=== PATIENT | female | born 1965 | race Caucasian/White ===

== ENCOUNTER 2017-01-11 06:49 | Day surgery (SDC) | payer OTHER ==
[2017-01-11] MEDS ORDERED: Naropin 0.5% 30 ML VIAL IJ ONE (06:50)
[2017-01-11] MEDS ORDERED: BREVIBLOC 100 MG/10 ML IV ONE (06:50)
[2017-01-11] MEDS ORDERED: Versed 2 MG/2 ML Injection IV ONE ×2 (06:50)
[2017-01-11] MEDS ORDERED: Decadron 4 MG INJ IV ONE ×2 (06:50)
[2017-01-11] MEDS ORDERED: APRESOLINE 20 MG/ML INJ IV ONE (06:50)
[2017-01-11] MEDS ORDERED: DILAUDID 2 MG INJECTION IV ONE (06:50)
[2017-01-11] MEDS ORDERED: DIPRIVAN 200 MG/20 ML IV ONE (06:50)
[2017-01-11] MEDS ORDERED: Zemuron 100 MG/10 ML IV ONE ×2 (06:50)
[2017-01-11] MEDS ORDERED: Zofran 4 MG/2 ML VIAL IV ONE ×2 (06:50)
[2017-01-11] MEDS ORDERED: SUBLIMAZE 100 MCG/2 ML IV ONE ×2 (06:50)
[2017-01-11] MEDS ORDERED: BRIDION 200MG/2ML IV ONE (06:50)
[2017-01-11] MEDS ORDERED: Quelicin Fliptop 200 MG/10 ML IV ONE ×2 (06:50)
[2017-01-11] MEDS ORDERED: XYLOCAINE 2%/Epi 1:200000 20ML VIAL MPF IJ ONE (06:50)
[2017-01-11] MEDS ORDERED: TORAdol 30 mg Injection IV ONE ×2 (06:50)
[2017-01-11] MEDS ORDERED: Lactated Ringers 1,000 ML IV ONE ×2 (07:47→10:30)
[2017-01-11] MEDS ORDERED: Xopenex 1.25 MG/0.5 ML UD NEBULE IH ONE ×2 (07:49→08:05)
[2017-01-11] MEDS ORDERED: CEFAZOLIN 2 GM-D5W BAG** 2 GM/50 ML ML IV SCH (08:00)
[2017-01-11] MEDS ORDERED: Lactated Ringers 1,000 ML IV SCH (08:00)
[2017-01-11] MEDS ORDERED: ON-Q PUMP 1 in Marcaine Mpf 0.5% Vial 30 Ml*** 270 ML IV SCH (09:45)
[2017-01-11] MEDS ORDERED: MARCAINE MPF IV SCH (10:00)
[2017-01-11] MEDS ORDERED: ON Q PUMP IV SCH (10:00)
--- NOTE | 2017-01-11 10:57 | OP ---
SURGERY DATE/TIME: 01/11/2017 0938 PREOPERATIVE DIAGNOSIS: Right shoulder subacromial impingement with possible rotator cuff tear. POSTOPERATIVE DIAGNOSES: 1) Right shoulder subacromial impingement with rotator cuff tear. 2) Chondromalacia glenohumeral joint. 3) Paralabral degeneration right shoulder. PROCEDURES: 1) Right shoulder arthroscopy with chondroplasty. 2) Right shoulder arthroscopy with glenolabral debridement. 3) Open acromioplasty distal clavicle resection, CA ligament release and bursectomy. 4) Modified rotator cuff repair. 5) Long arm splint. 6) On-Q catheter postoperative pain. SURGEON: Francisco J Almeida D.O. FIRST AID INSTRUCTOR: None. ANESTHESIA: General per PERFORATOR. ESTIMATED BLOOD LOSS: Minimal. DESCRIPTION OF PROCEDURE: The patient is taken to the operative suite and placed in supine position, given general anesthetic. Head of bed elevated 60 degrees in beach chair. Sterile prep and drape is done to the right arm and shoulder. Entry point made in the posterior aspect of the shoulder through glenohumeral joint with a spinal needle stab incision and camera. Inflow established there and retrograde placement of the spinal needle stab incision and just lateral to the coracoid a shaver and then diagnostic arthroscopy begun. The right shoulder was found to have multiple areas of small, round depressions in the glenohumeral chondral surfaces. None done to bone but a few with modified outer bridge changes putting it right on scale of 1 to 2 covering 5 to 10 mm in selected areas. This was buffed up and cleaned with both the ArthroCare device, modified ArthroCare device from the [employer] system and SURFAS and the shaver. Glenolabral material then was pulling away from the anterior edge of the joint line was appreciated and it was touched up with the ArthroCare SURFAS device and cleaned with a shaver, pictures and probe and this was done from about the 1:00 to 4:00 areas primarily. It appeared to have the labrum fully intact otherwise including the biceps tendon, rotator cuff found to have a small rent. I removed the instruments and drained the shoulder of saline. A small incision made over the AC joint through skin, subcutaneous fascia, deep fascia into the subacromial space resecting the leading edge of the acromion and distal clavicle, taking out bursa and assessing CA ligament and cleaning the subacromial space. Rotator cuff was addressed and there was a small rent. My passage of one deep rotator cuff repair into the bone and considered removal as the repair was not necessarily tenuous but was not as strong as I would like and felt that it was stable however. The wound is irrigated saline and closed with interrupted Ethibond in the subacromial space, 0 Vicryl in the subcutaneous layer, roberta in the skin, Xeroform, 4x4, sterile dressings. Long arm splint applied. An On-Q catheter through separate entry point was placed into the subacromial space and secured with Steri-Strips run at a 1 to 2 cc/hour rate and converted now to a 400 cc reservoir with a pump creating 4 cc/hour delivery. The patient is sent onto the recovery room in satisfactory condition. I spoke to the son about the merits of the case.
[2017-01-11 13:11] VITALS: O2SAT 98
[2017-01-11 14:07] VITALS: BP 108/75; PULSE 61
== END 2017-01-11 13:50 | disposition home or self-care (01) ==
LOC: SDC 06:49
PROVIDERS: ATTEND Orthopaedic Surgery
PROC: 0LQ10ZZ Repair Right Shoulder Tendon, Open Approach (ICD-10-PCS; principal; 2017-01-11)
PROC: 0RBJ4ZZ Excision of Right Shoulder Joint, Percutaneous Endoscopic Approach (ICD-10-PCS; 2017-01-11)
DX: M75.41 Impingement syndrome of right shoulder (principal); M75.101 Unspecified rotator cuff tear or rupture of right shoulder, not specified as traumatic; M94.211 Chondromalacia, right shoulder
CPT/HCPCS: 01630; 64415; 76942; 93005; 94640; J0330; J0360; J0690; J1100; J1170; J1885; J2250; J2405; J2704; J2795; J3010; A9270-GY

== ENCOUNTER 2017-02-12 00:45 | Emergency (ER) | payer OTHER ==
[2017-02-12] MEDS ORDERED: MORPHINE SULFATE 10 MG/ML IV ONE (01:16)
[2017-02-12] MEDS ORDERED: BENADRYL 50 MG/ML IV ONE (01:16)
[2017-02-12] MEDS ORDERED: Sodium Chloride 0.9% 1000 ML 1,000 ML IV SCH (01:30)
[2017-02-12] MEDS ORDERED: BENADRYL 50 MG/ML ONE (01:30)
[2017-02-12] MEDS ORDERED: MORPHINE SULFATE 10 MG/ML ONE (01:31)
[2017-02-12] MEDS ORDERED: Sodium Chloride 0.9% 1000 ML 1,000 ML ONE (01:31)
[2017-02-12 01:34] LABS: BASOPHIL % 0.5 % (0.0-0.4); Eosinophil % 4.3 % (0.00-5.0); Granulocytes % 68.8 % (36.0-66.0); Lymphocytes % 15.8 % (24.0-44.0); Mean Cell Volume 94.4 fl (78-100); Mean Corpuscular Hemoglobin 31.5 pg (26-32); Mean Platelet Volume 9.5 fl (6-9.5); Monocytes % 10.6 % (0.0-12.0); Platelet Count 248 K/mm3 (150-450); Red Blood Count 4.26 M/mm3 (4.1-5.4); Red Cell Distribution Width 13.6 % (11.5-14.0); White Blood Count 9.8 K/mm3 (4.0-10.5)
[2017-02-12 01:52] LABS: ANION GAP 11.7 MEQ/L (5-15); BLOOD UREA NITROGEN 21 mg/dL (9-20); CHLORIDE 99 mEq/L (98-107); Carbon Dioxide 26.9 mEq/L (21-32); Glucose 138 MG/DL (70-110); Potassium 3.9 mEq/L (3.5-5.1); SODIUM 134 mEq/L (136-145)
[2017-02-12 02:07] VITALS: BP 124/62; PULSE 82; O2SAT 98
--- NOTE | 2017-02-12 02:41 | ERPHSYRPT ---
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 She has had extra pain. Out of norco. She fell on the right shoulder last weekend and may have injured it. She has had some green drainage from the incision. Dr Abdul placed her on cipro last week. No redness. No fevers. Pain is worse with movement. She is using a sling. Has been unable to do physical therapy as yet. Pain in right shoulder is severe so she came to ER. Extremities Pain Location: shoulder: right Allergies/Adverse Reactions: itraconazole [Itraconazole] Allergy (Mild, Verified 01/11/17 07:46) tramadol Allergy (Mild, Verified 01/11/17 07:46) acetaminophen [From Darvocet-N] Allergy (Verified 01/11/17 07:46) propoxyphene napsylate [From Darvocet-N] Allergy (Verified 01/11/17 07:46) Home Medications: Citalopram Hydrobromide 20 mg* [ceLEXa 20 MG] 20 mg PO DAILY 01/10/17 [ History] Omeprazole 20 MG [Prilosec 20 mg] 20 mg PO DAILY 01/10/17 [History] Hx Tetanus, Diphtheria Vaccination/Date Given: Yes (UNKNOWN) Hx Influenza Vaccination/Date Given: No Hx Pneumococcal Vaccination/Date Given: No - Review of Systems Constitutional: No Fever, No Chills Cardiac: No Chest Pain Musculoskeletal: Joint Pain (right shoulder), No Back Pain, No Neck Pain Neurological: No Focal Weakness, No Parasthesia All Other Systems: Reviewed and Negative - Past Medical History Pertinent Past Medical History: Yes Neurological History: Stroke ENT History: No Pertinent History Cardiac History: Hypertension Respiratory History: No Pertinent History Endocrine Medical History: No Pertinent History Musculoskeletal History: Arthritis, Degenerative Disk Disease GI Medical History: Esophageal Disorder, GERD, Hepatitis, Irritable Bowel History: No Pertinent History Psycho-Social History: Anxiety, Depression Female Reproductive Disorders: No Pertinent History Other Medical History: ESOPHAGEAL ULCER, overactive bladder - Past Surgical History Past Surgical History: Yes Neuro Surgical History: No Pertinent History Cardiac: No Pertinent History Respiratory: No Pertinent History Gastrointestinal: Cholecystectomy Genitourinary: No Pertinent History Musculoskeletal: No Pertinent History, Orthopedic Surgery Female Surgical History: Tubal Ligation, Other Other Surgical History: LT SHOULDER. bilateral KNEE. TONSILS. 2 fingers reattatched right knee surgery times 2 - Social History Smoking Status: Current every day smoker How long have you smoked: 20 Exposure to second hand smoke: Yes Drug Use: none Patient Lives Alone: No - Female History Hx Last Menstrual Period: na Hx Now: No - Nursing Vital Signs Nursing Vital Signs: Initial Vital Signs Temperature 99.8 F 02/12/17 01:00 Pulse Rate 96 H 02/12/17 01:00 Respiratory Rate 16 02/12/17 01:00 Blood Pressure 111/83 02/12/17 01:00 O2 Sat by Pulse Oximetry 97 02/12/17 01:00 Pain Scale Pain Intensity 8 - Physical Exam General Appearance: alert Eyes, Ears, Nose, Throat Exam: normal ENT inspection, moist mucous membranes Neck Exam: supple Cardiovascular/Respiratory Exam: normal breath sounds, regular rate/rhythm Shoulder Exam: limited ROM (mild green drng on dressing, no fluctuance or drng expressed, no warmth or redness, severe tenderness to the shoulder area) Elbow/Forearm Exam: normal inspection, non-tender Wrist Exam: normal inspection, non-tender Hand Exam: normal inspection, non-tender Neuro/Tendon Exam: normal sensation, normal motor functions Mental Status Exam: alert, oriented x 3, cooperative Skin Exam: warm, dry SpO2 Interpretation: normal SpO2: 98 Oxygen Delivery: Room Air - Course Nursing assessment & vital signs reviewed: Yes Ordered Tests: Active Orders 24 hr Category Date Time Status IV Insertion STAT Care 02/12/17 01:16 Active SHOULDER Stat Exams 02/12/17 01:18 Taken BMP Stat Lab 02/12/17 01:30 Completed CBC W DIFF Stat Lab 02/12/17 01:30 Completed CULTURE,WOUND Stat Lab 02/12/17 01:30 Received Erythrocyte Sedimentation Rate Stat Lab 02/12/17 01:30 Completed Medication Summary Generic Name Dose Route Start Last Admin Trade Name Brittany PRN Reason Stop Dose Admin Sodium Chloride 1,000 mls @ 100 mls/hr 02/12/17 01:30 02/12/17 01:33 Sodium Chloride 0.9% 1000 Ml IV 03/14/17 01:29 100 mls/hr .Q10H SOFI Administration Discontinued Medications Generic Name Dose Route Start Last Admin Trade Name Brittany PRN Reason Stop Dose Admin Diphenhydramine HCl 44 mg 02/12/17 01:16 02/12/17 01:32 Benadryl 50 Mg/Ml IV 02/12/17 01:17 44 mg STAT ONE Administration Diphenhydramine HCl Confirm 02/12/17 01:30 Benadryl 50 Mg/Ml Administered 02/12/17 01:31 Dose 50 mg .ROUTE .STK-MED ONE Morphine Sulfate 8 mg 02/12/17 01:16 02/12/17 01:32 Morphine Sulfate 10 Mg/Ml IV 02/12/17 01:17 8 mg STAT ONE Administration Morphine Sulfate Confirm 02/12/17 01:31 Morphine Sulfate 10 Mg/Ml Administered 02/12/17 01:32 Dose 10 mg .ROUTE .STK-MED ONE Lab/Rad Data: Laboratory Result Diagrams 02/12/17 01:30 02/12/17 01:30 Laboratory Results 02/12/17 02/12/17 02/12/17 Range/Units 01:30 01:30 01:30 WBC 9.8 (4.0-10.5) K/mm3 RBC 4.26 (4.1-5.4) M/mm3 Hgb 13.4 (12.0-16.0) gm/dl Hct 40.2 (35-47) % MCV 94.4 (78-100) fl MCH 31.5 (26-32) pg MCHC 33.3 (32-36) g/dl RDW 13.6 (11.5-14.0) % Plt Count 248 (150-450) K/mm3 MPV 9.5 (6-9.5) fl Gran % 68.8 H (36.0-66.0) % Lymphocytes % 15.8 L (24.0-44.0) % Monocytes % 10.6 (0.0-12.0) % Eosinophils % 4.3 (0.00-5.0) % Basophils % 0.5 (0.0-0.4) % Basophils # 0.05 (0-0.4) ESR 25 H (0-20) mm/hr Sodium 134 L (136-145) mEq/L Potassium 3.9 (3.5-5.1) mEq/L Chloride 99 (98-107) mEq/L Carbon Dioxide 26.9 (21-32) mEq/L Anion Gap 11.7 (5-15) MEQ/L BUN 21 H (9-20) mg/dL Creatinine 0.82 (0.55-1.30) mg/dl Estimated GFR > 60 ML/MIN Glucose 138 H (70-110) MG/DL Calcium 8.7 (8.5-10.1) mg/dL - Progress Progress Note: 02/12/17 02:42 Pt was medicated for pain. Labs reassuring. Called Dr Abdul who advised add keflex, ice, continue sling, norco, follow up tuesday. Counseled pt/family regarding: lab results, diagnosis, need for follow-up, rad results - Departure Time of Disposition: 02:43 Departure Disposition: Home Clinical Impression: Acute postoperative pain of right shoulder Condition: Stable Critical Care Time: No Referrals: JUDITH ABDUL [ACTIVE STAFF] - Instructions: Adhesive Capsulitis -- Arthroscopic Surgery, Shoulder Pain Additional Instructions: Add Keflex Rx. Ice packs off and on. Use sling. Call Dr Abdul Tuesday to be seen. Rx norco- no driving tonite or while taking. Prescriptions: Hydrocodone Bit/Acetaminophen [[place] 5-325 Tablet] 1 each PO Q6H PRN PRN #10 tablet PRN Reason: Pain Cephalexin Mh 500 mg [Keflex 500 mg] 1 cap PO QID #40 capsule
[2017-02-12] MEDS ORDERED: KEFLEX 500 MG PO ONE (02:45)
[2017-02-12] MEDS ORDERED: Adacel Vial IM ONE ×2 (02:45→02:54)
[2017-02-12] MEDS ORDERED: KEFLEX 500 MG ONE (02:50)
[2017-02-12] MEDS ORDERED: NORCO 5/325 MG PO ONE (02:52)
[2017-02-12] MEDS ORDERED: NORCO 5/325 MG ONE (02:55)
--- NOTE | 2017-02-12 07:11 | XRAY ---
Indication: Postop pain following rotator cuff surgery. Drainage. Comparison: None 3 views of the right shoulder demonstrates mild acromial spurring and partial resection of the distal clavicle. No other bony, articular, or soft tissue abnormalities.
== END 2017-02-12 03:25 | disposition home or self-care (01) ==
LOC: ED 00:45
DX: G89.18 Other acute postprocedural pain (principal); M25.511 Pain in right shoulder; I10 Essential (primary) hypertension; Z79.899 Other long term (current) drug therapy
CPT/HCPCS: 36000; 36415; 73030; 80048; 85025; 85652; 87070; 87077; 87186; 90471; 90715; 96360; 99284; J1200; J2270; A9270-GY

== ENCOUNTER 2018-03-15 12:52 | Day surgery (SDC) | payer OTHER ==
[2012-04-23 17:45] VITALS: BP 120/86
[2018-03-15] MEDS ORDERED: Depo-Medrol 40 MG/ML IM ONE (12:53)
[2018-03-15] MEDS ORDERED: DIPRIVAN 200 MG/20 ML IV ONE (12:53)
[2018-03-15] MEDS ORDERED: Marcaine 0.5% SDV 10 ML IJ ONE (12:53)
[2018-03-15] MEDS ORDERED: Lactated Ringers 1,000 ML IV ONE (14:54)
--- NOTE | 2018-03-15 16:11 | XRAY ---
14 seconds fluoroscopy time in surgery for bilateral SI joint injection.
--- NOTE | 2018-03-16 04:54 | XRAY ---
Exam: C-arm images for bilateral sacroiliac joint injection. Findings: 14 seconds of intraoperative fluoroscopy time was utilized. 3 intraoperative C-arm images were obtained, 2 in the lateral projection and one in the PA projection. A posterior needle is seen directed toward the inferior margin of the right sacroiliac joint. I do not see a PA image of the left sacroiliac joint. Correlate clinically. Correlate with therapeutic procedure.
== END 2018-03-15 15:00 | disposition home or self-care (01) ==
LOC: SDC-PAIN 12:52
PROVIDERS: ATTEND Psychiatry & Neurology Pain Medicine
DX: M53.3 Sacrococcygeal disorders, not elsewhere classified (principal)
CPT/HCPCS: 27096; 72020; 77002; J1030; J2704; G0260

== ENCOUNTER 2018-10-04 14:05 | Day surgery (SDC) | payer OTHER ==
[2012-04-23 17:45] VITALS: BP 120/86
[2018-10-04] MEDS ORDERED: Marcaine 0.5% SDV 10 ML IJ ONE (14:06)
[2018-10-04] MEDS ORDERED: Depo-Medrol 40 MG/ML IM ONE (14:06)
[2018-10-04] MEDS ORDERED: Lactated Ringers 1,000 ML IV ONE (14:33)
[2018-10-04] MEDS ORDERED: DIPRIVAN 200 MG/20 ML IV ONE (15:03)
[2018-10-04] MEDS ORDERED: Ketamine HCl 50 MG/ML ONE (15:03)
--- NOTE | 2018-10-04 16:42 | XRAY ---
Indication: Bilateral SI joint injection. Intraoperative fluoroscopy was provided for 11 seconds. 4 digital spot images submitted for interpretation demonstrates posterior needle tips projecting over the inferior left and right SI joints. Correlate with intraoperative findings/report.
--- NOTE | 2018-10-04 16:47 | XRAY ---
11 seconds of fluoroscopy was used in surgery for a bilateral SI joint injection.
== END 2018-10-04 15:35 | disposition home or self-care (01) ==
LOC: SDC-PAIN 14:05
PROVIDERS: ATTEND Psychiatry & Neurology Pain Medicine
DX: M46.1 Sacroiliitis, not elsewhere classified (principal); M53.3 Sacrococcygeal disorders, not elsewhere classified; M19.90 Unspecified osteoarthritis, unspecified site; B19.20 Unspecified viral hepatitis C without hepatic coma; F41.8 Other specified anxiety disorders
CPT/HCPCS: 72202; 77002; 84703; G0260; 27096; J1030; J2704

== ENCOUNTER 2019-03-14 15:44 | Day surgery (SDC) | payer OTHER ==
[2012-04-23 17:45] VITALS: BP 120/86
[2019-03-14] MEDS ORDERED: Depo-Medrol 40 MG/ML IM ONE (15:45)
[2019-03-14] MEDS ORDERED: Xylocaine 1% Vial 30 ML PF IJ ONE (15:45)
--- NOTE | 2019-03-14 22:43 | XRAY ---
Indication: Left SI joint injection. Intraoperative fluoroscopy was provided for 5 seconds. 2 digital spot images submitted for interpretation demonstrates posterior needle tip projecting over the inferior left SI joint. Correlate with intraoperative findings/report.
--- NOTE | 2019-03-14 22:52 | XRAY ---
5 seconds of fluoroscopy was used in surgery for a left SI joint injection.
== END 2019-03-14 17:06 | disposition home or self-care (01) ==
LOC: SDC-PAIN 15:44
PROVIDERS: ATTEND Psychiatry & Neurology Pain Medicine
DX: M46.1 Sacroiliitis, not elsewhere classified (principal); M47.817 Spondylosis without myelopathy or radiculopathy, lumbosacral region; F41.8 Other specified anxiety disorders; Z79.899 Other long term (current) drug therapy
CPT/HCPCS: 27096; 72020; 77002; 84703; J1030; J2001; G0260

== ENCOUNTER 2019-10-03 08:14 | Emergency (ER) | payer MEDICAID ==
--- NOTE | 2019-10-03 08:23 | ERPHSYRPT ---
- History of Present Illness Time Seen by Provider: 10/03/19 08:23 Source: patient, family Exam Limitations: no limitations Physician History: This is a 54-year-old morbidly obese white female with history of hypertension who took her medications this morning. She was on her way to work when she noticed some blurred vision and tics. The blurred vision has resolved but the tics are persistent. Patient states she is never had this before. Patient denies chest pain. Patient has chronic shortness of breath. Patient denies nausea vomiting or diarrhea. Patient has no abdominal pain. Patient states no new medications have been started. Patient smokes cigarettes daily. Patient's medication for blood pressure is lisinopril. Patient has a history of a stroke in the past but has no residual effects per her report. Timing/Duration: today, resolved prior to arrival (The blurred vision has resolved. The tics have persisted) Severity: mild Associated Symptoms: shortness of breath, No nausea, No vomiting, No abdominal pain, No cough, No chills, No chest pain, No syncope, No seizure Allergies/Adverse Reactions: itraconazole [Itraconazole] Allergy (Mild, Verified 10/03/19 08:32) tramadol Allergy (Mild, Verified 10/03/19 08:32) acetaminophen [From Darvocet-N] Allergy (Verified 10/03/19 08:32) propoxyphene napsylate [From Darvocet-N] Allergy (Verified 10/03/19 08:32) Home Medications: Citalopram Hydrobromide 20 mg* [ceLEXa 20 MG] 20 mg PO DAILY 01/10/17 [History] Omeprazole 20 MG [Prilosec 20 mg] 20 mg PO DAILY 01/10/17 [History] Hx Tetanus, Diphtheria Vaccination/Date Given: Yes (UNKNOWN) Hx Influenza Vaccination/Date Given: No Hx Pneumococcal Vaccination/Date Given: No Travel Risk - International Travel Have you traveled outside of the country in past 3 weeks: No - Coronavirus Screening Are you exhibiting any of the following symptoms?: No Close contact with a COVID-19 positive Pt in past 14-21 Days: No - Review of Systems Constitutional: No Symptoms Eyes: No Symptoms Ears, Nose, & Throat: No Symptoms Respiratory: Dyspnea Cardiac: No Symptoms Abdominal/Gastrointestinal: No Symptoms Genitourinary Symptoms: No Symptoms Musculoskeletal: No Symptoms Skin: No Symptoms Neurological: No Symptoms Psychological: No Symptoms Endocrine: No Symptoms Hematologic/Lymphatic: No Symptoms Immunological/Allergic: No Symptoms All Other Systems: Reviewed and Negative - Past Medical History Pertinent Past Medical History: Yes Neurological History: Stroke ENT History: No Pertinent History Cardiac History: Hypertension Respiratory History: Bronchitis Endocrine Medical History: No Pertinent History Musculoskeletal History: Arthritis GI Medical History: Esophageal Disorder, GERD, Hepatitis, Irritable Bowel History: No Pertinent History Psycho-Social History: Anxiety, Depression Female Reproductive Disorders: No Pertinent History Other Medical History: ESOPHAGEAL ULCER, overactive bladder - Past Surgical History Past Surgical History: Yes Neuro Surgical History: No Pertinent History Cardiac: No Pertinent History Respiratory: No Pertinent History Gastrointestinal: Cholecystectomy Genitourinary: No Pertinent History Musculoskeletal: No Pertinent History, Orthopedic Surgery Female Surgical History: Tubal Ligation, Other Other Surgical History: LT SHOULDER. bilateral KNEE. TONSILS. 2 fingers reattatched right knee surgery times 2 - Social History Smoking Status: Current every day smoker How long have you smoked: 20 Exposure to second hand smoke: Yes Drug Use: none Patient Lives Alone: No - Nursing Vital Signs Nursing Vital Signs: Initial Vital Signs Temperature 98.3 F 10/03/19 08:17 Pulse Rate 92 H 10/03/19 08:17 Respiratory Rate 20 10/03/19 08:17 Blood Pressure 162/109 10/03/19 08:17 O2 Sat by Pulse Oximetry 97 10/03/19 08:17 Pain Scale Pain Intensity 0 - Physical Exam General Appearance: mild distress, alert, anxiety, obese Eye Exam: PERRL/EOMI, eyes nml inspection Ears, Nose, Throat Exam: normal ENT inspection, moist mucous membranes Neck Exam: normal inspection, non-tender, supple, full range of motion Respiratory Exam: normal breath sounds, lungs clear, airway intact, No chest tenderness, No respiratory distress Cardiovascular Exam: regular rate/rhythm, normal heart sounds, normal peripheral pulses Gastrointestinal/Abdomen Exam: soft, normal bowel sounds, No tenderness Pelvic Exam: not done Rectal Exam: not done Back Exam: normal inspection, normal range of motion, No CVA tenderness, No vertebral tenderness Extremity Exam: normal inspection, normal range of motion, pelvis stable Neurologic Exam: alert, oriented x 3, cooperative, electric wheelchair repairer II-XII nml as tested Skin Exam: other (Periodic tics. Generalized and synchronized) Lymphatic Exam: No adenopathy SpO2 Interpretation: normal O2 Delivery: Room Air - Course Nursing assessment & vital signs reviewed: Yes EKG Interpreted by Me: RATE (89), Sinus Rhythm, NORMAL AXIS, NORMAL INTERVALS, NORMAL QRS Ordered Tests: Active Orders 24 hr Category Date Time Status Field Cane Scaler Helper STAT Care 10/03/19 08:30 Active Clean Catch Urine Specimen STAT Care 10/03/19 08:31 Active EKG-ER Only STAT Care 10/03/19 08:29 Active IV Insertion STAT Care 10/03/19 08:29 Active NPO (ED) STAT Care 10/03/19 08:29 Active Pulse Oximetry (ED) STAT Care 10/03/19 08:29 Active CHEST 1 VIEW (PORTABLE) Stat Exams 10/03/19 08:30 Completed HEAD WITHOUT CONTRAST [CT] Stat Exams 10/03/19 08:31 Completed CBC W DIFF Stat Lab 10/03/19 08:50 Completed CMP Stat Lab 10/03/19 08:50 Completed UA W/RFX UR CULTURE Stat Lab 10/03/19 08:49 Completed Urine Triage Profile Stat Lab 10/03/19 08:50 Completed Medication Summary Discontinued Medications Generic Name Dose Route Start Last Admin Trade Name Freq PRN Reason Stop Dose Admin Lorazepam 0.5 mg 10/03/19 08:32 10/03/19 08:46 Ativan 2 Mg/1 Ml Vial IV 10/03/19 08:33 0.5 mg STAT ONE Administration Lorazepam Confirm 10/03/19 08:44 Ativan 2 Mg/1 Ml Vial Administered 10/03/19 08:45 Dose 2 mg .ROUTE .STK-MED ONE Lab/Rad Data: Laboratory Result Diagrams 10/03/19 08:50 10/03/19 08:50 Laboratory Results 10/03/19 10/03/19 10/03/19 Range/Units 08:50 08:50 08:50 WBC 6.3 (4.0-10.5) K/mm3 RBC 5.14 (4.1-5.4) M/mm3 Hgb 15.4 (12.0-16.0) gm/dl Hct 46.2 (35-47) % MCV 89.9 (78-100) fl MCH 30.0 (26-32) pg MCHC 33.3 (32-36) g/dl RDW 15.0 H (11.5-14.0) % Plt Count 277 (150-450) K/mm3 MPV 9.9 (7.5-11.0) fl Gran % 56.3 (36.0-66.0) % Eos # (Auto) 0.14 (0-0.5) Absolute Lymphs (auto) 2.02 (1.0-4.6) Absolute Monos (auto) 0.56 (0.0-1.3) Lymphocytes % 31.9 (24.0-44.0) % Monocytes % 8.8 (0.0-12.0) % Eosinophils % 2.2 (0.00-5.0) % Basophils % 0.8 (0.0-0.4) % Absolute Granulocytes 3.57 (1.4-6.9) Basophils # 0.05 (0-0.4) Sodium 139 (137-145) mmol/L Potassium 4.2 (3.5-5.1) mmol/L Chloride 107 (98-107) mmol/L Carbon Dioxide 26 (22-30) mmol/L Anion Gap 10.1 (5-15) MEQ/L BUN 17 (7-17) mg/dL Creatinine 0.54 (0.52-1.04) mg/dL Estimated GFR > 60.0 ML/MIN Glucose 125 H (74-106) mg/dL Calcium 9.4 (8.4-10.2) mg/dL Total Bilirubin 0.50 (0.2-1.3) mg/dL AST 109 H (14-36) U/L ALT 192 H (0-35) U/L Alkaline Phosphatase 78 (38-126) U/L Serum Total Protein 7.9 (6.3-8.2) g/dL Albumin 4.2 (3.5-5.0) g/dL Urine Color (YELLOW) Urine Appearance (CLEAR) Urine pH (5-6) Ur Specific Daisy (1.005-1.025) Urine Protein (Negative) Urine Ketones (NEGATIVE) Urine Blood (0-5) Seth/ul Urine Nitrite (NEGATIVE) Urine Bilirubin (NEGATIVE) Urine Urobilinogen (0-1) mg/dL Ur Leukocyte Esterase (NEGATIVE) Urine WBC (Auto) (0-5) /HPF Urine RBC (Auto) (0-2) /HPF U Epithel Cells (Auto) (FEW) /HPF Urine Bacteria (Auto) (NEGATIVE) /HPF Urine Culture Reflexed (NO) Urine Glucose (NEGATIVE) mg/dL Urine Opiates Level NEGATIVE (NEGATIVE) Ur Methadone NEGATIVE (NEGATIVE) Urine Barbiturates NEGATIVE (NEGATIVE) Ur Phencyclidine (PCP) NEGATIVE (NEGATIVE) Urine Amphetamine POSITIVE (NEGATIVE) U Benzodiazepine Level NEGATIVE (NEGATIVE) Urine Cocaine NEGATIVE (NEGATIVE) Urine Marijuana (THC) POSITIVE (NEGATIVE) 10/03/19 Range/Units 08:49 WBC (4.0-10.5) K/mm3 RBC (4.1-5.4) M/mm3 Hgb (12.0-16.0) gm/dl Hct (35-47) % MCV (78-100) fl MCH (26-32) pg MCHC (32-36) g/dl RDW (11.5-14.0) % Plt Count (150-450) K/mm3 MPV (7.5-11.0) fl Gran % (36.0-66.0) % Eos # (Auto) (0-0.5) Absolute Lymphs (auto) (1.0-4.6) Absolute Monos (auto) (0.0-1.3) Lymphocytes % (24.0-44.0) % Monocytes % (0.0-12.0) % Eosinophils % (0.00-5.0) % Basophils % (0.0-0.4) % Absolute Granulocytes (1.4-6.9) Basophils # (0-0.4) Sodium (137-145) mmol/L Potassium (3.5-5.1) mmol/L Chloride (98-107) mmol/L Carbon Dioxide (22-30) mmol/L Anion Gap (5-15) MEQ/L BUN (7-17) mg/dL Creatinine (0.52-1.04) mg/dL Estimated GFR ML/MIN Glucose (74-106) mg/dL Calcium (8.4-10.2) mg/dL Total Bilirubin (0.2-1.3) mg/dL AST (14-36) U/L ALT (0-35) U/L Alkaline Phosphatase (38-126) U/L Serum Total Protein (6.3-8.2) g/dL Albumin (3.5-5.0) g/dL Urine Color YELLOW (YELLOW) Urine Appearance CLEAR (CLEAR) Urine pH 6.0 (5-6) Ur Specific Daisy 1.010 (1.005-1.025) Urine Protein NEGATIVE (Negative) Urine Ketones NEGATIVE (NEGATIVE) Urine Blood NEGATIVE (0-5) Seth/ul Urine Nitrite NEGATIVE (NEGATIVE) Urine Bilirubin NEGATIVE (NEGATIVE) Urine Urobilinogen NEGATIVE (0-1) mg/dL Ur Leukocyte Esterase NEGATIVE (NEGATIVE) Urine WBC (Auto) NONE (0-5) /HPF Urine RBC (Auto) NONE (0-2) /HPF U Epithel Cells (Auto) NONE (FEW) /HPF Urine Bacteria (Auto) NONE (NEGATIVE) /HPF Urine Culture Reflexed NO (NO) Urine Glucose NEGATIVE (NEGATIVE) mg/dL Urine Opiates Level (NEGATIVE) Ur Methadone (NEGATIVE) Urine Barbiturates (NEGATIVE) Ur Phencyclidine (PCP) (NEGATIVE) Urine Amphetamine (NEGATIVE) U Benzodiazepine Level (NEGATIVE) Urine Cocaine (NEGATIVE) Urine Marijuana (THC) (NEGATIVE) - Progress Progress: improved, re-examined Progress Note: 10/03/19 09:59 CAT scan of the head shows no acute intracranial abnormalities X-ray of the chest reveals no acute or new findings Counseled pt/family regarding: lab results, diagnosis, need for follow-up, rad results - Departure Departure Disposition: Home Clinical Impression: Hypertension, Visual changes Condition: Stable Critical Care Time: No Referrals: LENA HAYNES RETAIL LEADER [Primary Care Provider] - Additional Instructions: Take your medications as prescribed. Follow-up with your primary care physician tomorrow for further management.
[2019-10-03] MEDS ORDERED: Ativan 2 MG/1 ML VIAL IV ONE (08:32)
[2019-10-03] MEDS ORDERED: Ativan 2 MG/1 ML VIAL ONE (08:44)
--- NOTE | 2019-10-03 09:02 | XRAY ---
Indication: Blurred vision. Involuntary tics. Comparison: January 08, 2016. Portable apical lordotic chest continues to demonstrate normal heart and lungs. Bony thorax intact again with minimal degenerative changes. No new/acute findings.
--- NOTE | 2019-10-03 09:06 | XRAY ---
Indication: Blurred vision. Involuntary tics. Multiple contiguous axial images obtained through the head without contrast. Comparison: March 06, 2016. Again normal appearing brain parenchyma, ventricles, and bony calvarium. Minimal mucosal thickening right ethmoid sinus and minimal opacification of both inferior mastoid air cells presumed inflammatory. Impression: 1. Minimal right ethmoid sinus mucosal thickening and minimal bilateral mastoid air cell opacification presumed inflammatory. 2. Remaining CT head without contrast is again normal.
[2019-10-03 09:18] LABS: Absolute Neutrophil Ct (ANC) 3.57 (1.4-6.9); BASOPHIL % 0.8 % (0.0-0.4); Basophil (Absolute #) 0.05 (0-0.4); Eosinophil % 2.2 % (0.00-5.0); Eosinophil (Absolute #) 0.14 (0-0.5); Hematocrit 46.2 % (35-47); Hemoglobin 15.4 gm/dl (12.0-16.0); Lymphocyte (Absolute #) 2.02 (1.0-4.6); Lymphocytes % 31.9 % (24.0-44.0); Mean Cell Volume 89.9 fl (78-100); Mean Corpuscular Hgb Concent. 33.3 g/dl (32-36); Mean Platelet Volume 9.9 fl (7.5-11.0); Monocyte (Absolute #) 0.56 (0.0-1.3); Monocytes % 8.8 % (0.0-12.0); Neutrophil % 56.3 % (36.0-66.0); Platelet Count 277 K/mm3 (150-450); Red Blood Count 5.14 M/mm3 (4.1-5.4); White Blood Count 6.3 K/mm3 (4.0-10.5)
[2019-10-03 09:22] LABS: Barbiturate,Urine NEGATIVE (NEGATIVE); Benzodiazepine,Urine NEGATIVE (NEGATIVE); Cocaine,Urine NEGATIVE (NEGATIVE); Methadone,Urine NEGATIVE (NEGATIVE); Opiate,Urine NEGATIVE (NEGATIVE); PCP,Urine NEGATIVE (NEGATIVE); THC,Urine POSITIVE (NEGATIVE)
[2019-10-03 09:43] LABS: ALBUMIN 4.2 g/dL (3.5-5.0); ALKALINE PHOSPHATASE 78 U/L (38-126); ANION GAP 10.1 MEQ/L (5-15); BLOOD UREA NITROGEN 17 mg/dL (7-17); CHLORIDE 107 mmol/L (98-107); Calcium 9.4 mg/dL (8.4-10.2); Carbon Dioxide 26 mmol/L (22-30); Creatinine 1 0.54 mg/dL (0.52-1.04); Glucose 125 mg/dL (74-106); Potassium 4.2 mmol/L (3.5-5.1); SGOT/AST 109 U/L (14-36); SGPT/ALT 192 U/L (0-35); SODIUM 139 mmol/L (137-145); Total Protein 7.9 g/dL (6.3-8.2)
[2019-10-03 11:13] LABS: Amphetamine,Urine POSITIVE (NEGATIVE)
[2019-10-03 11:55] LABS: Appearance CLEAR (CLEAR); Bilirubin NEGATIVE (NEGATIVE); Blood NEGATIVE Ery/ul (0-5); Glucose NEGATIVE (NEGATIVE); Ketones NEGATIVE (NEGATIVE); Leukocyte Esterase NEGATIVE (NEGATIVE); Nitrite NEGATIVE (NEGATIVE); Protein,Urine Dip NEGATIVE (Negative); Urobilinogen NEGATIVE mg/dL (0-1)
[2019-10-03 12:02] VITALS: BP 128/91; PULSE 76; O2SAT 98
== END 2019-10-03 12:04 | disposition home or self-care (01) ==
LOC: ED 08:14
DX: I10 Essential (primary) hypertension (principal); H53.8 Other visual disturbances; Z79.899 Other long term (current) drug therapy; K21.9 Gastro-esophageal reflux disease without esophagitis; K22.9 Disease of esophagus, unspecified; K75.9 Inflammatory liver disease, unspecified; K58.9 Irritable bowel syndrome, unspecified
CPT/HCPCS: 36000; 36415; 70450; 71045; 80053; 80307; 81001; 85025; 93005; 93041; 94760; 96374; 99284; J2060

== ENCOUNTER 2020-05-07 12:27 | Day surgery (SDC) | payer OTHER ==
[2012-04-23 17:45] VITALS: BP 120/86
[2020-05-07] MEDS ORDERED: BUPIVACAINE 0.5% VIAL IJ ONE (12:28)
[2020-05-07] MEDS ORDERED: Depo-Medrol 40 MG/ML IM ONE (12:28)
[2020-05-07] MEDS ORDERED: DIPRIVAN 200 MG/20 ML IV ONE (13:52)
[2020-05-07] MEDS ORDERED: Ketamine HCl 50 MG/ML ONE (13:54)
--- NOTE | 2020-05-07 14:32 | XRAY ---
Indication: Bilateral SI joint injection. Intraoperative fluoroscopy provided for 19 seconds. 4 digital spot images submitted for interpretation demonstrates posterior needle tip projecting over the inferior left and right SI joint. Correlate with intraoperative findings/report.
[2020-05-07] MEDS ORDERED: Lactated Ringers 1,000 ML IV ONE (15:03)
--- NOTE | 2020-05-07 17:03 | XRAY ---
19 seconds of fluoroscopy was used in surgery for a bilateral SI joint injection.
== END 2020-05-07 14:17 | disposition home or self-care (01) ==
LOC: SDC-PAIN 12:27
PROVIDERS: ATTEND Psychiatry & Neurology Pain Medicine
DX: M46.1 Sacroiliitis, not elsewhere classified (principal); M53.3 Sacrococcygeal disorders, not elsewhere classified; F41.8 Other specified anxiety disorders; Z79.899 Other long term (current) drug therapy
CPT/HCPCS: 27096; 72202; 77002; J1030; J2704; G0260

== ENCOUNTER 2021-01-28 15:54 | Day surgery (SDC) | payer OTHER ==
[2012-04-23 17:45] VITALS: BP 120/86
[2021-01-28] MEDS ORDERED: LIDOCAINE HCL 2% 100 MG/5 ML IJ ONE (15:55)
[2021-01-28] MEDS ORDERED: DIPRIVAN 200 MG/20 ML IV ONE (18:10)
[2021-01-28] MEDS ORDERED: Lactated Ringers 1,000 ML IV ONE (18:39)
--- NOTE | 2021-01-28 21:15 | XRAY ---
Indication: Bilateral L4-S1 MBB. Intraoperative fluoroscopy provided for 8 seconds. Single digital spot image submitted for interpretation demonstrates posterior needle tips projecting over the expected left and right L4-S1 nerve roots. Correlate with intraoperative findings/report.
--- NOTE | 2021-01-29 09:11 | XRAY ---
8 seconds fluoroscopy time in surgery for bilateral L4-S1 MBB.
== END 2021-01-28 18:40 | disposition home or self-care (01) ==
LOC: SDC-PAIN 15:54
PROVIDERS: ATTEND Psychiatry & Neurology Pain Medicine
DX: M47.816 Spondylosis without myelopathy or radiculopathy, lumbar region (principal); Z79.899 Other long term (current) drug therapy
CPT/HCPCS: 64493; 64494; 72020; 77002; J2704

== ENCOUNTER 2021-03-25 10:42 | Day surgery (SDC) | payer OTHER ==
[2012-04-23 17:45] VITALS: BP 120/86
[2021-03-25] MEDS ORDERED: Xylocaine 1% Vial 30 ML PF IJ ONE (10:43)
[2021-03-25] MEDS ORDERED: Depo-Medrol 40 MG/ML IM ONE (10:43)
[2021-03-25] MEDS ORDERED: BUPIVACAINE 0.5% VIAL IJ ONE (10:43)
[2021-03-25] MEDS ORDERED: DIPRIVAN 200 MG/20 ML IV ONE (12:14)
[2021-03-25] MEDS ORDERED: Lactated Ringers 1,000 ML IV ONE ×2 (12:18→13:20)
--- NOTE | 2021-03-25 13:51 | XRAY ---
Indication: Left L4-S1 RFA. Intraoperative fluoroscopy provided for 21 seconds. 3 digital spot image submitted for interpretation demonstrates posterior needle tips projecting over the left L4-S1 nerve roots. Correlate with intraoperative findings/report.
--- NOTE | 2021-03-25 14:06 | XRAY ---
21 seconds of fluoroscopy was used in surgery for a left L4-S1 RFA.
== END 2021-03-25 12:45 | disposition home or self-care (01) ==
LOC: SDC-PAIN 10:42
PROVIDERS: ATTEND Psychiatry & Neurology Pain Medicine
DX: M47.816 Spondylosis without myelopathy or radiculopathy, lumbar region (principal); F41.9 Anxiety disorder, unspecified; F32.9 Major depressive disorder, single episode, unspecified; Z79.899 Other long term (current) drug therapy
CPT/HCPCS: 64635; 64636; 72100; 77002; J1030; J2001; J2704

== ENCOUNTER 2021-04-01 13:29 | Day surgery (SDC) | payer OTHER ==
[2012-04-23 17:45] VITALS: BP 120/86
[2021-04-01] MEDS ORDERED: Xylocaine 1% Vial 30 ML PF IJ ONE (13:30)
[2021-04-01] MEDS ORDERED: Depo-Medrol 40 MG/ML IM ONE (13:30)
[2021-04-01] MEDS ORDERED: BUPIVACAINE 0.5% VIAL IJ ONE (13:30)
[2021-04-01] MEDS ORDERED: Lactated Ringers 1,000 ML IV ONE (15:38)
[2021-04-01] MEDS ORDERED: DIPRIVAN 200 MG/20 ML IV ONE ×2 (15:43→15:51)
--- NOTE | 2021-04-01 16:50 | XRAY ---
Indication: Right L4-S1 RFA. Intraoperative fluoroscopy provided for 43 seconds. 3 digital spot image submitted for interpretation demonstrates posterior needle tips projecting over the expected right L4-S1 nerve roots. Correlate with intraoperative findings/report.
--- NOTE | 2021-04-01 17:03 | XRAY ---
43 seconds fluoroscopy time in surgery for right L4-S1 RFA.
== END 2021-04-01 16:16 | disposition home or self-care (01) ==
LOC: SDC-PAIN 13:29
PROVIDERS: ATTEND Psychiatry & Neurology Pain Medicine
DX: M47.816 Spondylosis without myelopathy or radiculopathy, lumbar region (principal); Z79.899 Other long term (current) drug therapy
CPT/HCPCS: 64635; 64636; 72100; 77002; J1030; J2001; J2704

== ENCOUNTER 2021-10-30 07:01 | Day surgery (SDC) | payer OTHER ==
[~2021-10-30 07:01] MED LIST: Lactated Ringers 1,000 ML IV ONE; XYLOCAINE 1% HCL 20 ML MDV ONE
[2021-10-30] MEDS ORDERED: Marcaine Mpf 0.5% Vial 30 Ml IV ONE (07:02)
[2021-10-30] MEDS ORDERED: Lactated Ringers 1,000 ML IV ONE ×2 (07:14→15:14)
[2021-10-30] MEDS ORDERED: CEFAZOLIN 2 GM-D5W BAG** 2 GM/50 ML ML IV ONE (09:05)
[2021-10-30] MEDS: Lactated Ringers 1,000 ML IV SCH ×2 (09:06→15:15)
[2021-10-30 09:14] LABS: ALBUMIN 3.7 g/dL (3.5-5.0); ALKALINE PHOSPHATASE 69 U/L (38-126); ANION GAP 11.3 MEQ/L (5-15); BLOOD UREA NITROGEN 23 mg/dL (7-17); CHLORIDE 105 mmol/L (98-107); Calcium 9.1 mg/dL (8.4-10.2); Carbon Dioxide 27 mmol/L (22-30); Creatinine 1 0.67 mg/dL (0.52-1.04); EST GLOMERULAR FILTRATION RATE > 60.0 ML/MIN; Glucose 106 mg/dL (74-106); Potassium 4.4 mmol/L (3.5-5.1); SGOT/AST 25 U/L (14-36); SGPT/ALT 21 U/L (0-35); SODIUM 139 mmol/L (137-145); Total Protein 7.2 g/dL (6.3-8.2)
[2021-10-30] MEDS ORDERED: CEFAZOLIN 2 GM-D5W BAG** 2 GM/50 ML ML IV SCH (09:30)
[2021-10-30] MEDS ORDERED: Lactated Ringers 2,000 ML IV ONE (09:50)
[2021-10-30] MEDS ORDERED: Versed 2 MG/2 ML Injection ONE (10:10)
[2021-10-30] MEDS ORDERED: DIPRIVAN 200 MG/20 ML IV ONE (10:10)
[2021-10-30] MEDS ORDERED: Zemuron 100 MG/10 ML ONE ×3 (10:10→11:28)
[2021-10-30] MEDS ORDERED: Proair Hfa MDI IH ONE (11:24)
[2021-10-30] MEDS ORDERED: Naropin 0.5% 30 ML VIAL ONE (13:02)
[2021-10-30] MEDS ORDERED: Marcaine 0.5%/Epinephrine 10 ML ONE (13:02)
[2021-10-30] MEDS ORDERED: BRIDION 200MG/2ML IV ONE (13:17)
--- NOTE | 2021-10-30 13:38 | XRAY ---
Indication: Left ankle synovectomy, talonavicular arthrodesis, and gastrocnemius resection. Intraoperative fluoroscopy provided for 2 minutes 15 seconds. 9 digital spot images submitted for interpretation ultimately demonstrates talonavicular fusion with 2 intact screws. Correlate with intraoperative findings/report.
[2021-10-30] MEDS ORDERED: Hydromorphone 1 mg/ml Injection ONE ×2 (14:01→14:13)
[2021-10-30] MEDS ORDERED: TORAdol 30 mg Injection ONE (14:07)
[2021-10-30] MEDS ORDERED: NORCO 5/325 MG PO PRN (15:21)
[2021-10-30 16:07] VITALS: O2SAT 93
--- NOTE | 2021-10-30 16:24 | XRAY ---
2 minutes and 15 seconds of fluoroscopy was used in surgery for a left ankle synovectomy, talonavicular arthrodesis, and gastrocnemius resection
[2021-10-30 17:55] VITALS: BP 124/94; PULSE 91
--- NOTE | 2021-11-02 10:58 | OP ---
SURGERY DATE/TIME: 10/30/2021 1023 PREOPERATIVE DIAGNOSES: 1) Left ankle pain. 2) Left ankle osteoarthritis. 3) Left ankle synovitis with effusion. 4) Talar neck osteochondroma. 5) Gastrocnemius equinus. 6) Talonavicular osteoarthritis. POSTOPERATIVE DIAGNOSES: 1) Left ankle pain. 2) Left ankle osteoarthritis. 3) Left ankle synovitis with effusion. 4) Talar neck osteochondroma. 5) Gastrocnemius equinus. 6) Talonavicular osteoarthritis. PROCEDURES: 1) Ankle arthroscopy with synovectomy, left. 2) Gastrocnemius resection. 3) Excision of osteochondroma talar neck. 4) Talonavicular joint arthrodesis. SURGEON: Diogenes Rogers DPM. ASBESTOS SIDING INSTALLER: None. ANESTHESIA: General plus a postoperative regional block. See anesthesia report for details. HEMOSTASIS: Thigh tourniquet set to 350 mm of Mercury for 95 minutes. MATERIALS: Nita large Tyber 6.5 mm x 50 and a 4.0 x 38 Tyber screws with 2 cc of StrataGraft Plus, 2-0 Vicryl and 3-0 Nylon. INJECTABLES: See anesthesia report for details. INDICATION FOR PROCEDURE: Cammy is a very well-known patient to my practice who has failed extensive treatments in conservative fashion for pain that she has been experiencing to her left ankle. The patient has failed immobilization, change in shoe wear, injections, anti-inflammatory and other conservative modalities at this time. The patient was advised that the goal of the procedure was to reduce if not completely eliminate the pain that she has been experiencing. At this time the patient is amenable to the plan which is for arthroscopy with synovectomy of the tibiotalar joint, removal of an osteochondroma, lengthening of the gastrocnemius muscle belly as well as talonavicular fusion. She understands all risks, complications and benefits of the procedure including but not limited to infection, hematoma, seroma, possibility of need for removal of irritating hardware, possibility of nonunion which was discussed with the patient extensively due to her smoking history. Consultation was made six weeks prior to the patient's scheduled date of procedure and advised her with a smoking cessation counseling visit in order to stop in preparation for the procedure. The patient understands that during this time it will help benefit the healing process to avoid any nicotine from that standpoint. The patient has voiced her understanding and wishes to proceed and understands the risks. Plenty of time was allowed for the patient to ask questions which were answered to the patient's apparent satisfaction. No guarantees were provided as to the outcome of surgical intervention. It is with that we decided to proceed. DESCRIPTION OF PROCEDURE AND FINDINGS: The patient is brought into the OR and placed on the OR table in the supine position. At this time a well-padded thigh tourniquet was applied to the patient's left thigh. The patient was sedated utilizing general anesthesia until the patient was sedated. From that standpoint, the left lower extremity was prepped and draped in the typical sterile fashion. At this time marking pen was utilized to map out the medial malleolus and the palpable dell of the talus at the ankle joint with the foot in dorsiflexion as well as the lateral malleolus and drawing lines to prepare for the arthroscopy. At this time a 30 cc syringe of lactated Ringer's was injected at the anteromedial portal insufflating the joint. A 15 blade was utilized to make an incision which was bluntly dissected utilizing a mini-curved hemostat down to the level of the capsule of the joint. Following this, the blunt obturator was introduced and then the camera was introduced. Once the camera was introduced the lights were turned off in the room and under inspection with a light, anterolateral portal was established utilizing an 11 blade once again along with a curved mini. The shaver was then introduced. The camera was set in focus and inspection of the joint took place. At this time extensive synovectomy took place within the joint clearing up all of the synovetic and inflamed tissue at the anterior aspect of the tibiotalar capsule as well as at the margin of the lateral collateral ligament of the ankle joint. At this time inspection of the distal aspect of the anterolateral portion of the anterior inferior tibiofibular ligament. Facet ligament was seen to be impinging on the ankle joint. At this time resection of this low lying scar tissue/ligament was performed. At this time pictures were taken of the joint identifying all structures that were debrided and the scope was then retracted from their portals. At this time attention was then directed to the posterior aspect of the medial calf where at the palpable dell of the calf muscle a linear incision was made approximately 6 cm in length which was incised with a 15 blade. Subcutaneous dissection was carried out with blunt dissection down to the fascial layer which was once again incised utilizing a 15 blade. Once down to this level, the aponeurosis of the gastrocnemius muscle belly was identified and a gastrocnemius resection was performed being careful not to damage the sural nerve on the lateral aspect of the surgical site. Following this flush was carried out of the surgical site. A 2-0 Vicryl was utilized to subcutaneously close the skin edges in a buried interrupted-type fashion and 3-0 Nylon was utilized in a horizontal mattress-type fashion to coapt the skin edges in an everted-type fashion. Following this an Esmarch was utilized to exsanguinate the leg. Under fluoroscopic guidance, a dorsal medial incision was planned over the talonavicular joint. At this time incision was made just lateral to the tibialis anterior tendon. The incision was carried down utilizing a combination of blunt and sharp dissection being careful not to damage any neurovascular structures along the way. At this time the osteochondroma at the talar neck was identified and resected utilizing a combination of rongeurs, osteotomes and curette as well as smoothed down utilizing a hand rasp. Following this, the talonavicular joint was identified under fluoroscopic guidance. The joint soft tissue was resected exposing the arthritic joint, the dorsal aspect of both the distal aspect of the talar head and the navicular proximal base were denuded of their cartilage almost entirely to the top 70% of the joint. At the medial aspect of the talonavicular joint there was some denuding of the cartilage some of that of an osteochrondral defect. At this time, a one rib distractor was utilized to distract the joint and all of the cartilage was removed until only subchondral plate was identified. Copious amounts of sterile saline were utilized to flush this site. Following this, 2.0 mm drill bit was utilized to fenestrate the surface of the joint. A curved osteotome was utilized to fish scale the talonavicular joint and a rongeur was utilized to elongate the subchondral plate fenestration and bridging to increase surface area. StrataGraft Plus 2 cc was then introduced into the joint and temporary fixation was placed and this was checked under fluoroscopic guidance and multiple views. Following this a 6.5 mm x 50 mm large Tyber screw from Nita was introduced from the navicular tuberosity into the talar neck and body. Following this, a 4.0 x 38 was introduced at the lateral aspect of the talar body insuring that there is adequate compression to the lateral aspect of the talonavicular arthrodesis site. Following this, copious amounts of sterile saline were utilized to flush the surgical site. A 2-0 Vicryl was utilized to coapt the subcutaneous skin edges and a 3-0 Nylon was utilized to coapt in a horizontal mattress-type fashion at the skin edges. Following this, the tourniquet was let down at a total of 95 total tourniquet minutes. A dressing consisting of Betadine, Adaptic, 4x4, Kerlix, CLEMENT and a well-padded posterior splint was applied to the patient's left lower extremity with the foot orthogonal relative to the longitudinal axis of the leg. Following this, the patient was provided a postoperative popliteal and saphenous block in order to extend the patient's pain relief. The patient was then returned to the postoperative anesthesia care unit with vital signs stable and vascular status intact. The patient handled the procedure as well as anesthesia without significant complication. Postoperative orders as indicated in the patient's discharge chart.
== END 2021-10-30 17:00 | disposition home or self-care (01) ==
LOC: SDC 07:01
PROVIDERS: ATTEND Podiatrist Foot & Ankle Surgery
DX: M19.072 Primary osteoarthritis, left ankle and foot (principal); M25.572 Pain in left ankle and joints of left foot; M65.872 Other synovitis and tenosynovitis, left ankle and foot; D16.32 Benign neoplasm of short bones of left lower limb; M21.962 Unspecified acquired deformity of left lower leg
CPT/HCPCS: 36415; 73620; 76000; 80053; 80323; 93005; J0690; J1170; J1885; J2250; J2704; J2795; A9270-GY

== ENCOUNTER 2022-08-04 07:58 | Day surgery (SDC) | payer OTHER ==
[2012-04-23 17:45] VITALS: BP 120/86
[2022-08-04] MEDS ORDERED: BUPIVACAINE 0.5% VIAL IJ ONE (07:59)
[2022-08-04] MEDS ORDERED: Depo-Medrol 40 MG/ML IM ONE (07:59)
[2022-08-04] MEDS ORDERED: DIPRIVAN 200 MG/20 ML IV ONE (09:29)
--- NOTE | 2022-08-04 11:23 | XRAY ---
Indication: Bilateral SI joint injection. Intraoperative fluoroscopy provided 12 seconds. 4 digital spot image submitted for interpretation demonstrates posterior needle tip projecting over the left and right SI joint. Correlate with intraoperative findings/report.
--- NOTE | 2022-08-04 11:41 | XRAY ---
12 seconds of fluoroscopy was used in surgery for a bilateral sacroiliac joint injection.
[2022-08-04] MEDS ORDERED: Lactated Ringers 1,000 ML IV ONE (12:20)
== END 2022-08-04 09:55 | disposition home or self-care (01) ==
LOC: SDC-PAIN 07:58
PROVIDERS: ATTEND Psychiatry & Neurology Pain Medicine
DX: M46.1 Sacroiliitis, not elsewhere classified (principal); Z79.899 Other long term (current) drug therapy
CPT/HCPCS: 01992; 27096; 72202; 77002; 82947; G0260; J1030; J2704